=== PATIENT | female | born 1940 | race Caucasian/White ===

== ENCOUNTER 2018-11-03 12:45 | Day surgery (SDC) | payer MEDICARE, OTHER, SELFPAY ==
--- NOTE | 2018-11-03 | PATH_ITS ---
[facility] Accession Number: [id number] . 01 Material submitted: . CECAL POLYP . 02 Diagnosis: Cecum, Polyp, Biopsy: Tubular adenoma. MRV/11/05/2018 . 02 Electronically signed: . Patricia Thurston MD, Pathologist NPI- [id number] . 01 Gross description: . CECAL POLYP: Received in formalin is 1 fragment(s) of lauren, soft tissue measuring 0.7 x 0.3 x 0.2 cm submitted entirely in 1 cassette(s) /CKI /CKI . 02 Pathologist provided ICD-10: D12.0 . 02 CPT . 772793 Performed at: 01 [facility] [address] [facility] [place], [place], [place] [id number] MD Otto Morales MD Phone: [phone] Performed at: 02 [facility] [address] [place], [place] [id number] MD Patricia Thurston MD Phone: [phone]
[2018-11-03 13:56] VITALS: BP 159/86; PULSE 65; RESP 18; TEMP 37.5; O2SAT 97
[2018-11-03] MEDS: SODIUM CHLORIDE 0.9% 1,000 ML 100 ML IV (14:00)
[2018-11-03 14:07] VITALS: BMI 34.7
[2018-11-03] MEDS: MIDAZOLAM 5 MG/5 ML VIAL IV (15:41)
[2018-11-03] MEDS: fentaNYL 250 MCG/5 ML INJ IV (15:42)
--- NOTE | 2018-11-03 15:42 | PM.OP.ENDO ---
Operative Date/Time/Diagnoses Date of procedure: 11/03/18 Time of procedure: 15:42 Pre-op diagnosis: See Procedure & Clinicians Study performed: Colonoscopy Same procedure as scheduled: Yes Indications: Colon cancer screening Surgeon: Kailyn Dolan Procedure Notes Procedure in detail: After informed consent was obtained the patient was placed in left lateral decubitus position. The video colonoscope was introduced the rectum and slowly advanced. Preparation was good. Colon was fairly tortuous and rather adhesed making for some fairly sharp corners. On slow withdrawal the coast was carefully examined. The scope was removed patient tolerated procedure well Blood loss none Complications none Sedation Total sedation time 27 min Fentanyl 100 mcg Versed 5 mg IV titration Findings 1. 3 mm cecal polyp Jumbo biopsy removed completely 2. Extensive diverticulosis throughout the colon but particularly in the left colon and transverse colon. We will be getting back we sharing about her biopsy results. Given her age this is probably her last colonoscopy.
[2018-11-03 15:43] VITALS: BP 135/74; PULSE 61; RESP 12; TEMP 36.8; O2SAT 97
[2018-11-03 15:48] VITALS: BP 134/73; PULSE 59; RESP 14; O2SAT 97
[2018-11-03 15:53] VITALS: BP 136/75; PULSE 65; RESP 16; TEMP 36.8; O2SAT 99
[2018-11-03 16:15] VITALS: BP 143/76; PULSE 60; RESP 16; TEMP 36.9; O2SAT 100
--- NOTE | 2018-11-03 16:26 | SUR.PHASEII ---
stable phase 2.left when ready, left in stable condition.
== END 2018-11-03 16:20 ==
LOC: ENDO 12:46
PROVIDERS: PCP Family Medicine; Visit Provider Internal Medicine Gastroenterology
PROC: 0DJD8ZZ Inspection of Lower Intestinal Tract, Via Natural or Artificial Opening Endoscopic (ICD-10-PCS; CPT 45378; principal; 2018-11-03 14:00)
DX: Z12.11 Encounter for screening for malignant neoplasm of colon (principal); K57.30 Diverticulosis of large intestine without perforation or abscess without bleeding; D12.0 Benign neoplasm of cecum
CPT/HCPCS: 45380; 88305; J2250; J3010

== ENCOUNTER → 2019-01-10 15:39 | Outpatient (REF) | payer MEDICARE, OTHER, SELFPAY | LOC: LAB 15:39 | PROVIDERS: PCP Family Medicine; Visit Provider Family Medicine | DX: M17.0 Bilateral primary osteoarthritis of knee (principal) | CPT/HCPCS: 87081 ==

== ENCOUNTER → 2020-07-11 13:57 | Outpatient (CLI) | payer MEDICARE, OTHER, SELFPAY ==
--- NOTE | 2020-07-11 | DI.RAD.S_ITS ---
PROCEDURE: XR DEXA AXIAL SKELETON INDICATIONS: disorders of bone density and structure COMPARISON: None. FINDINGS: This blank DEXA report has been sent in error by the PACS system. The correct and complete report will be forthcoming in 1-2 days. Thank you for your patience and understanding. Dictated by: Leonarda Sutton MD, PhD on 07/11/2020 at 17:38 Approved by: Leonarda Sutton MD, PhD on 07/11/2020 at 17:44
== END ==
PROVIDERS: PCP Family Medicine; Referring Provider Family Medicine; Visit Provider Family Medicine
DX: M81.0 Age-related osteoporosis without current pathological fracture (principal); Z78.0 Asymptomatic menopausal state; Z85.3 Personal history of malignant neoplasm of breast
CPT/HCPCS: 77080

== ENCOUNTER 2021-02-16 15:37 | Emergency (ER) | payer MEDICARE, OTHER, SELFPAY ==
[2021-02-16] VITALS (50 sets, daily range): BP systolic 105–160; BP diastolic 59–103; PULSE 135–144; RESP 14–31; TEMP 36.5–37.1; O2SAT 88–96; BMI 36.3
--- NOTE | 2021-02-16 15:59 | DI.RAD.S_ITS ---
PROCEDURE: XR CHEST 1V INDICATIONS: chest pain TECHNIQUE: One view of the chest was acquired. COMPARISON: None. FINDINGS: Surgical changes and devices: None. Lungs and pleura: Lungs are abnormal with patchy bilateral alveolar edema. No pleural effusions or pneumothorax. Mediastinum: Mediastinal contours appear normal. Heart size is at the upper limits of normal. Bones and chest wall: No suspicious bony lesions. Overlying soft tissues appear unremarkable. IMPRESSION: Acute CHF appearance, no pleural effusion seen. Heart size at upper limits of normal. Dictated by: Juan Jose Marrufo M.D. on 02/16/2021 at 15:28 Approved by: Juan Jose Marrufo M.D. on 02/16/2021 at 15:29
[2021-02-16] MEDS: SODIUM CHLORIDE 0.9% 1,000 ML 150 ML IV (16:09)
[2021-02-16] MEDS: dilTIAZem 5 MG/ML SDV 10 MG IV (16:09)
--- NOTE | 2021-02-16 16:16 | ED.ARRPALP ---
HPI - Arrhythmia/Palpitations <Yesy Baum DO - Last Filed: 02/17/21 06:55> General Chief Complaint: Arrhythmia/Palpitations Stated Complaint: fast heart rate 142/bpm Time Seen by Provider: 02/16/21 15:45 Source: patient Mode of arrival: Ambulatory Limitations: no limitations History of Present Illness HPI narrative: Patient is a 80-year-old female with history of SVT presenting with elevated heart rate in the 140s. She felt ?wonky today and her took her heart rate and blood pressure and older her heart rate was in the 140s. However the last 5 days she has been checking her blood pressure and heart rate but apparently only looking at her blood pressure the went back today after she said she did not feel well and noticed that her heart rate was in the 140s since February 12. At which point they decided to come to the emergency department. Patient denies chest pain palpitations. She is having some shortness of breath with exertion but not at rest. No fever or cough. Patient is noted to be on flecainide has been is convinced it is for SVT however this does not make sense. Patient is in a wide complex regular rhythm on the monitor. She does state that she has a history of left bundle-branch block, at least those words sound familiar to her. MD complaint: rapid heart beat Related Data Home Medications Medication Instructions Recorded Confirmed potassium chloride 20 meq PO DAILY 11/03/18 11/03/18 Allergies Allergy/AdvReac Type Severity Reaction Status Date / Time No Known Drug Allergies Allergy Verified 02/16/21 15:59 Review of Systems <DO Aftab Villalta Last Filed: 02/17/21 06:55> Review of Systems ROS Unobtainable: All systems reviewed & are unremarkable except as noted in HPI and below Constitutional Constitutional: Denies chills, Denies fever(s), Denies lethargy and Denies weakness Eyes Eyes: Denies change in vision, Denies eye discharge, Denies irritation and Denies loss of vision ENT Ears, Nose, Mouth, and Throat: Denies change in voice, Denies neck pain and Denies sore throat Cardiovascular Cardiovascular: Reports rapid heart rate, Denies dyspnea and Reports dyspnea on exertion Respiratory Respiratory: Denies cough, Denies dyspnea, Reports dyspnea on exertion and Denies wheezing Gastrointestinal Gastrointestinal: Denies abdominal pain, Denies change in bowel habits, Denies diarrhea, Denies nausea and Denies vomiting Musculoskeletal Musculoskeletal: Denies joint swelling and Denies neck pain Integumentary/Breasts Skin/Breast: Denies pruritus, Denies erythema, Denies rash and Denies wounds Neurologic Neurologic: Denies loss of vision and Denies weakness Allergic/Immunologic Allergic/Immunologic: Denies wheezing Patient History <Yesy Baum DO - Last Filed: 02/17/21 06:55> Medical History Hypertension SVT (supraventricular tachycardia) Social History household members: spouse Smoking Status: Never smoker Smoking Status: Never smoker Substance Use Type: does not use Exam <Yesy Baum DO - Last Filed: 02/17/21 06:55> Initial Vital Signs Initial Vital Signs: Vital Signs Pulse Rate 144 H 02/16/21 15:46 Blood Pressure 160/103 H 02/16/21 15:46 Pulse Oximetry 96 02/16/21 15:46 GENERAL: Alert 80-year-old female in no acute distress HEENT: Head atraumatic,EOMI, pupils reactive, face symmetric, moist mucous membranes CARDIOVASCULAR: Regular tachycardic no murmurs RESPIRATORY: Breath sounds equal bilaterally, no wheezes rales or rhonchi. ABDOMEN: Soft, nontender. Normoactive bowel sounds all 4 quadrants. No guarding or rebound. EXTREMITIES: Normal range of motion, no clubbing or edema. Neurovascularly intact NEUROLOGICAL: Alert and oriented x4.Normal gait and speech. Cranial nerves II through XII grossly intact. SKIN: Warm, dry, no laceration, no petechiae, no rashes or lesions. <Kim Lewis MD - Last Filed: 02/16/21 23:22> Initial Vital Signs Initial Vital Signs: Vital Signs Pulse Rate 144 H 02/16/21 15:46 Blood Pressure 160/103 H 02/16/21 15:46 Pulse Oximetry 96 02/16/21 15:46 Course <Yesy Baum DO - Last Filed: 02/17/21 06:55> Orders Ordered: Discontinued Medications Diltiazem HCl (Diltiazem 5 Mg/Ml Sdv) 10 mg IV NOW ONE Stop: 02/16/21 16:00 Last Admin: 02/16/21 16:09 Dose: 10 mg Documented by: AMRITA Furosemide (Furosemide 40 Mg/4 Ml Vial) 20 mg IV NOW ONE Stop: 02/16/21 17:11 Last Admin: 02/16/21 17:58 Dose: 20 mg Documented by: AMRITA Heparin Sodium (Porcine) (Heparin 5,000 Unit/Ml Vial) 5,000 unit IV NOW ONE Stop: 02/16/21 17:27 Last Admin: 02/16/21 18:03 Dose: 5,000 unit Documented by: AMRTIA Sodium Chloride (Normal Saline 0.9%) 1,000 mls @ 150 mls/hr IV CONT KRISTAL Last Admin: 02/16/21 16:09 Dose: 150 mls/hr Documented by: AMRITA Amiodarone HCl/Dextrose (Nexterone) 150 mg in 100 mls @ 600 mls/hr IV NOW ONE; Protocol Stop: 02/16/21 17:33 Last Infusion: 02/16/21 19:01 Dose: 0 mls/hr Documented by: Admin: 02/16/21 18:08 Dose: 200 mls/hr Documented by: AMRITA Heparin Sodium/Dextrose (Heparin Drip) 25,000 unit in 500 mls @ 20 mls/hr IV CONT KRISTAL; Protocol Last Admin: 02/16/21 18:04 Dose: 1,000 units/hr, 20 mls/hr Documented by: AMRITA Amiodarone HCl/Dextrose (Nexterone) 360 mg in 200 mls @ 33.333 mls/hr IV NOW ONE; Protocol Stop: 02/17/21 00:41 Last Admin: 02/16/21 19:19 Dose: 33.3 mls/hr, 33.3 mls/hr Documented by: FREDI Sodium Chloride (Normal Saline 0.9%) 1,000 mls @ 150 mls/hr IV CONT KRISTAL Metoprolol Tartrate (Metoprolol Tartrate 5 Mg/5 Ml Inj) 5 mg IV NOW ONE Stop: 02/16/21 16:22 Last Admin: 02/16/21 16:24 Dose: 5 mg Documented by: AMRITA Metoprolol Tartrate (Metoprolol Tartrate 5 Mg/5 Ml Inj) 5 mg IV NOW ONE Stop: 02/16/21 16:39 Last Admin: 02/16/21 22:24 Dose: Not Given Documented by: Vital Signs Vital signs: Vital Signs - 8 hr 02/16/21 15:46 02/16/21 15:57 02/16/21 16:00 Temperature 97.7 F Pulse Rate 144 H 144 H 143 H Respiratory Rate 28 H 26 H Blood Pressure 160/103 H 160/103 H Pulse Oximetry 96 96 94 02/16/21 16:01 02/16/21 16:09 02/16/21 16:25 Temperature Pulse Rate 143 H 143 H 144 H Respiratory Rate 22 26 H Blood Pressure 147/94 H 147/94 H 131/87 Pulse Oximetry 95 92 02/16/21 16:30 02/16/21 16:35 02/16/21 16:40 Temperature Pulse Rate 144 H 141 H 141 H Respiratory Rate 16 19 14 Blood Pressure 127/88 120/82 112/79 Pulse Oximetry 91 91 95 02/16/21 16:45 02/16/21 16:50 02/16/21 16:55 Temperature Pulse Rate 141 H 140 H 140 H Respiratory Rate 24 20 19 Blood Pressure 118/77 107/78 109/79 Pulse Oximetry 94 94 94 02/16/21 17:00 02/16/21 17:05 02/16/21 17:10 Temperature Pulse Rate 140 H 140 H 140 H Respiratory Rate 15 21 16 Blood Pressure 111/73 114/76 Pulse Oximetry 94 93 95 02/16/21 17:15 02/16/21 17:20 02/16/21 17:25 Temperature Pulse Rate 140 H 140 H 141 H Respiratory Rate 17 16 18 Blood Pressure 117/79 114/78 114/81 Pulse Oximetry 95 95 95 02/16/21 17:30 02/16/21 17:35 02/16/21 17:40 Temperature Pulse Rate 141 H 141 H 142 H Respiratory Rate 18 17 24 Blood Pressure 116/84 124/88 110/81 Pulse Oximetry 95 95 95 02/16/21 18:00 02/16/21 18:30 02/16/21 19:00 Temperature Pulse Rate 141 H 137 H 140 H Respiratory Rate 18 21 23 Blood Pressure Pulse Oximetry 95 96 93 02/16/21 19:26 02/16/21 19:30 02/16/21 19:35 Temperature Pulse Rate 141 H 141 H 141 H Respiratory Rate 22 17 19 Blood Pressure 120/88 116/86 128/93 H Pulse Oximetry 93 93 93 02/16/21 19:40 02/16/21 19:45 02/16/21 19:50 Temperature Pulse Rate 142 H 141 H 143 H Respiratory Rate 21 22 19 Blood Pressure 131/93 H 128/97 H 122/93 H Pulse Oximetry 93 92 93 02/16/21 19:55 02/16/21 20:00 02/16/21 20:05 Temperature Pulse Rate 141 H 143 H 137 H Respiratory Rate 29 H 18 18 Blood Pressure 128/90 129/90 149/96 H Pulse Oximetry 93 93 94 02/16/21 20:10 02/16/21 20:15 02/16/21 20:20 Temperature Pulse Rate 137 H 136 H 135 H Respiratory Rate 16 23 25 H Blood Pressure 129/94 H 143/85 H 130/86 Pulse Oximetry 93 93 92 02/16/21 20:25 02/16/21 20:30 02/16/21 20:35 Temperature Pulse Rate 135 H 135 H 137 H Respiratory Rate 17 22 23 Blood Pressure 133/88 136/91 H 127/88 Pulse Oximetry 92 89 L 88 L 02/16/21 20:40 02/16/21 20:45 02/16/21 20:50 Temperature Pulse Rate 137 H 136 H 136 H Respiratory Rate 17 19 20 Blood Pressure 128/89 129/89 129/92 H Pulse Oximetry 94 93 93 02/16/21 21:00 02/16/21 21:15 02/16/21 21:30 Temperature Pulse Rate 135 H 135 H 138 H Respiratory Rate 20 29 H 22 Blood Pressure 135/92 H 140/91 H 112/65 Pulse Oximetry 94 93 93 02/16/21 21:45 02/16/21 22:00 02/16/21 22:15 Temperature Pulse Rate 138 H 138 H 140 H Respiratory Rate 22 19 21 Blood Pressure 105/59 L 119/68 130/87 Pulse Oximetry 91 94 91 <Kim Lewis MD - Last Filed: 02/16/21 23:22> Orders Ordered: Discontinued Medications Diltiazem HCl (Diltiazem 5 Mg/Ml Sdv) 10 mg IV NOW ONE Stop: 02/16/21 16:00 Last Admin: 02/16/21 16:09 Dose: 10 mg Documented by: AMRITA Furosemide (Furosemide 40 Mg/4 Ml Vial) 20 mg IV NOW ONE Stop: 02/16/21 17:11 Last Admin: 02/16/21 17:58 Dose: 20 mg Documented by: AMRITA Heparin Sodium (Porcine) (Heparin 5,000 Unit/Ml Vial) 5,000 unit IV NOW ONE Stop: 02/16/21 17:27 Last Admin: 02/16/21 18:03 Dose: 5,000 unit Documented by: AMRITA Sodium Chloride (Normal Saline 0.9%) 1,000 mls @ 150 mls/hr IV CONT KRISTAL Last Admin: 02/16/21 16:09 Dose: 150 mls/hr Documented by: AMRITA Amiodarone HCl/Dextrose (Nexterone) 150 mg in 100 mls @ 600 mls/hr IV NOW ONE; Protocol Stop: 02/16/21 17:33 Last Infusion: 02/16/21 19:01 Dose: 0 mls/hr Documented by: Admin: 02/16/21 18:08 Dose: 200 mls/hr Documented by: AMRITA Heparin Sodium/Dextrose (Heparin Drip) 25,000 unit in 500 mls @ 20 mls/hr IV CONT KRISTAL; Protocol Last Admin: 02/16/21 18:04 Dose: 1,000 units/hr, 20 mls/hr Documented by: AMRITA Amiodarone HCl/Dextrose (Nexterone) 360 mg in 200 mls @ 33.333 mls/hr IV NOW ONE; Protocol Stop: 02/17/21 00:41 Last Admin: 02/16/21 19:19 Dose: 33.3 mls/hr, 33.3 mls/hr Documented by: FREDI Sodium Chloride (Normal Saline 0.9%) 1,000 mls @ 150 mls/hr IV CONT KRISTAL Metoprolol Tartrate (Metoprolol Tartrate 5 Mg/5 Ml Inj) 5 mg IV NOW ONE Stop: 02/16/21 16:22 Last Admin: 02/16/21 16:24 Dose: 5 mg Documented by: AMRITA Metoprolol Tartrate (Metoprolol Tartrate 5 Mg/5 Ml Inj) 5 mg IV NOW ONE Stop: 02/16/21 16:39 Last Admin: 02/16/21 22:24 Dose: Not Given Documented by: Vital Signs Vital signs: Vital Signs - 8 hr 02/16/21 15:46 02/16/21 15:57 02/16/21 16:00 Temperature 97.7 F Pulse Rate 144 H 144 H 143 H Respiratory Rate 28 H 26 H Blood Pressure 160/103 H 160/103 H Pulse Oximetry 96 96 94 02/16/21 16:01 02/16/21 16:09 02/16/21 16:25 Temperature Pulse Rate 143 H 143 H 144 H Respiratory Rate 22 26 H Blood Pressure 147/94 H 147/94 H 131/87 Pulse Oximetry 95 92 02/16/21 16:30 02/16/21 16:35 02/16/21 16:40 Temperature Pulse Rate 144 H 141 H 141 H Respiratory Rate 16 19 14 Blood Pressure 127/88 120/82 112/79 Pulse Oximetry 91 91 95 02/16/21 16:45 02/16/21 16:50 02/16/21 16:55 Temperature Pulse Rate 141 H 140 H 140 H Respiratory Rate 24 20 19 Blood Pressure 118/77 107/78 109/79 Pulse Oximetry 94 94 94 02/16/21 17:00 02/16/21 17:05 02/16/21 17:10 Temperature Pulse Rate 140 H 140 H 140 H Respiratory Rate 15 21 16 Blood Pressure 111/73 114/76 Pulse Oximetry 94 93 95 02/16/21 17:15 02/16/21 17:20 02/16/21 17:25 Temperature Pulse Rate 140 H 140 H 141 H Respiratory Rate 17 16 18 Blood Pressure 117/79 114/78 114/81 Pulse Oximetry 95 95 95 02/16/21 17:30 02/16/21 17:35 02/16/21 17:40 Temperature Pulse Rate 141 H 141 H 142 H Respiratory Rate 18 17 24 Blood Pressure 116/84 124/88 110/81 Pulse Oximetry 95 95 95 02/16/21 18:00 02/16/21 18:30 02/16/21 19:00 Temperature Pulse Rate 141 H 137 H 140 H Respiratory Rate 18 21 23 Blood Pressure Pulse Oximetry 95 96 93 02/16/21 19:26 02/16/21 19:30 02/16/21 19:35 Temperature Pulse Rate 141 H 141 H 141 H Respiratory Rate 22 17 19 Blood Pressure 120/88 116/86 128/93 H Pulse Oximetry 93 93 93 02/16/21 19:40 02/16/21 19:45 02/16/21 19:50 Temperature Pulse Rate 142 H 141 H 143 H Respiratory Rate 21 22 19 Blood Pressure 131/93 H 128/97 H 122/93 H Pulse Oximetry 93 92 93 02/16/21 19:55 02/16/21 20:00 02/16/21 20:05 Temperature Pulse Rate 141 H 143 H 137 H Respiratory Rate 29 H 18 18 Blood Pressure 128/90 129/90 149/96 H Pulse Oximetry 93 93 94 02/16/21 20:10 02/16/21 20:15 02/16/21 20:20 Temperature Pulse Rate 137 H 136 H 135 H Respiratory Rate 16 23 25 H Blood Pressure 129/94 H 143/85 H 130/86 Pulse Oximetry 93 93 92 02/16/21 20:25 02/16/21 20:30 02/16/21 20:35 Temperature Pulse Rate 135 H 135 H 137 H Respiratory Rate 17 22 23 Blood Pressure 133/88 136/91 H 127/88 Pulse Oximetry 92 89 L 88 L 02/16/21 20:40 02/16/21 20:45 02/16/21 20:50 Temperature Pulse Rate 137 H 136 H 136 H Respiratory Rate 17 19 20 Blood Pressure 128/89 129/89 129/92 H Pulse Oximetry 94 93 93 02/16/21 21:00 02/16/21 21:15 02/16/21 21:30 Temperature Pulse Rate 135 H 135 H 138 H Respiratory Rate 20 29 H 22 Blood Pressure 135/92 H 140/91 H 112/65 Pulse Oximetry 94 93 93 02/16/21 21:45 02/16/21 22:00 02/16/21 22:15 Temperature Pulse Rate 138 H 138 H 140 H Respiratory Rate 22 19 21 Blood Pressure 105/59 L 119/68 130/87 Pulse Oximetry 91 94 91 MDM - Arrhythmia/Palpitations <Yesy Baum, - Last Filed: 02/17/21 06:55> Lab Data Attestation: I reviewed the patient's lab results. Result diagrams: 02/16/21 15:55 02/16/21 15:55 Labs: Lab Results 02/16/21 02/16/2121 Range/Units 15:55 15:55 16:00 WBC 11.3 H (4.5-11.0) X10^3/uL RBC 4.23 (4.0-5.2) X10^6/uL Hgb 12.5 (12.0-16.0) g/dL Hct 38.8 (36-46) % MCV 91.7 (80-100) fL MCH 29.6 (26-34) PG MCHC 32.3 (30-36) % RDW 14.0 (11.6-14.8) % Plt Count 414 H (150-400) X10^3/uL Neut % (Auto) 80.5 H (50-75) % Lymph % (Auto) 11.6 L (25-40) % Howell % (Auto) 6.4 (3-14) % Eos % (Auto) 1.0 L (2-4) % Baso % (Auto) 0.5 (0-2) % Neut # (Auto) 9100 H (4919-8641) /uL Lymph # (Auto) 1300 (8157-6174) /uL Howell # (Auto) 700 (0-900) /uL Eos # (Auto) 100 (0-450) /uL Baso # (Auto) 100 (0-100) /uL PT (10.1-12.7) SECONDS INR (0.9-1.3) APTT (26.4-36.2) SECONDS D-Dimer (<230) ng/mL Sodium 134 L (137-145) mmol/L Potassium 4.3 (3.4-5.1) mmol/L Chloride 105 (98-107) mmol/L Carbon Dioxide 21 L (22-32) mmol/L BUN 19 H (7-17) mg/dL Creatinine 0.60 (0.52-1.04) mg/dL Estimated GFR > 60.0 (>60) mL/min BUN/Creatinine Ratio 31.7 H (6-22) Glucose 120 H (80-110) mg/dL Calcium 9.6 (8.4-10.2) mg/dL Total Bilirubin 0.2 (0.2-1.3) mg/dL AST 39 H (14-36) IU/L ALT 33 (<35) IU/L Alkaline Phosphatase 91 (38-126) U/L Total Creatine Kinase 90 (30-135) U/L CK-MB (CK-2) TNP CK-MB (CK-2) Rel Index TNP Troponin I 0.035 H (0.01-0.034) ng/mL NT-Pro-B Natriuret Pep 3680 H (<450) pg/mL Total Protein 7.5 (6.3-8.2) g/dL Albumin 4.1 (3.5-5.0) g/dL Globulin 3.4 (1.7-4.1) g/dL Albumin/Globulin Ratio 1.2 (1.0-2.8) Lipase 48 (23-300) U/L SARS-CoV-2 (PCR) Negative (Negative) 02/16/21 02/16/21 02/16/21 Range/Units 17:08 17:08 17:08 WBC (4.5-11.0) X10^3/uL RBC (4.0-5.2) X10^6/uL Hgb (12.0-16.0) g/dL Hct (36-46) % MCV (80-100) fL MCH (26-34) PG MCHC (30-36) % RDW (11.6-14.8) % Plt Count (150-400) X10^3/uL Neut % (Auto) (50-75) % Lymph % (Auto) (25-40) % Howell % (Auto) (3-14) % Eos % (Auto) (2-4) % Baso % (Auto) (0-2) % Neut # (Auto) (1090-4157) /uL Lymph # (Auto) (3470-9363) /uL Howell # (Auto) (0-900) /uL Eos # (Auto) (0-450) /uL Baso # (Auto) (0-100) /uL PT 12.3 (10.1-12.7) SECONDS INR 1.1 (0.9-1.3) APTT 33 (26.4-36.2) SECONDS D-Dimer < 200 (<230) ng/mL Sodium (137-145) mmol/L Potassium (3.4-5.1) mmol/L Chloride (98-107) mmol/L Carbon Dioxide (22-32) mmol/L BUN (7-17) mg/dL Creatinine (0.52-1.04) mg/dL Estimated GFR (>60) mL/min BUN/Creatinine Ratio (6-22) Glucose (80-110) mg/dL Calcium (8.4-10.2) mg/dL Total Bilirubin (0.2-1.3) mg/dL AST (14-36) IU/L ALT (<35) IU/L Alkaline Phosphatase (38-126) U/L Total Creatine Kinase (30-135) U/L CK-MB (CK-2) CK-MB (CK-2) Rel Index Troponin I (0.01-0.034) ng/mL NT-Pro-B Natriuret Pep (<450) pg/mL Total Protein (6.3-8.2) g/dL Albumin (3.5-5.0) g/dL Globulin (1.7-4.1) g/dL Albumin/Globulin Ratio (1.0-2.8) Lipase (23-300) U/L SARS-CoV-2 (PCR) (Negative) 02/16/21 Range/Units 18:10 WBC (4.5-11.0) X10^3/uL RBC (4.0-5.2) X10^6/uL Hgb (12.0-16.0) g/dL Hct (36-46) % MCV (80-100) fL MCH (26-34) PG MCHC (30-36) % RDW (11.6-14.8) % Plt Count (150-400) X10^3/uL Neut % (Auto) (50-75) % Lymph % (Auto) (25-40) % Howell % (Auto) (3-14) % Eos % (Auto) (2-4) % Baso % (Auto) (0-2) % Neut # (Auto) (5066-4561) /uL Lymph # (Auto) (1704-2763) /uL Howell # (Auto) (0-900) /uL Eos # (Auto) (0-450) /uL Baso # (Auto) (0-100) /uL PT (10.1-12.7) SECONDS INR (0.9-1.3) APTT (26.4-36.2) SECONDS D-Dimer (<230) ng/mL Sodium (137-145) mmol/L Potassium (3.4-5.1) mmol/L Chloride (98-107) mmol/L Carbon Dioxide (22-32) mmol/L BUN (7-17) mg/dL Creatinine (0.52-1.04) mg/dL Estimated GFR (>60) mL/min BUN/Creatinine Ratio (6-22) Glucose (80-110) mg/dL Calcium (8.4-10.2) mg/dL Total Bilirubin (0.2-1.3) mg/dL AST (14-36) IU/L ALT (<35) IU/L Alkaline Phosphatase (38-126) U/L Total Creatine Kinase (30-135) U/L CK-MB (CK-2) CK-MB (CK-2) Rel Index Troponin I 0.031 (0.01-0.034) ng/mL NT-Pro-B Natriuret Pep (<450) pg/mL Total Protein (6.3-8.2) g/dL Albumin (3.5-5.0) g/dL Globulin (1.7-4.1) g/dL Albumin/Globulin Ratio (1.0-2.8) Lipase (23-300) U/L SARS-CoV-2 (PCR) (Negative) Imaging Data Chest x-ray: Radiologist's Impresson: PROCEDURE: XR CHEST 1V INDICATIONS: chest pain TECHNIQUE: One view of the chest was acquired. COMPARISON: None. FINDINGS: Surgical changes and devices: None. Lungs and pleura: Lungs are abnormal with patchy bilateral alveolar edema. No pleural effusions or pneumothorax. Mediastinum: Mediastinal contours appear normal. Heart size is at the upper limits of normal. Bones and chest wall: No suspicious bony lesions. Overlying soft tissues appear unremarkable. IMPRESSION: Acute CHF appearance, no pleural effusion seen. Heart size at upper limits of normal. Dictated by: Juan Jose Marrufo M.D. on 02/16/2021 at 15:28 ECG Data Attestation: I personally reviewed and interpreted this ECG as follows: Prior ECG tracings: available for review Interpretation: Atrial flutter 1-[address] changes slightly wide complex has no V-tach left bundle branch block Rate 141 no change from prior MDM Narrative Medical decision making narrative: Patient is asymptomatic with what seems to be atrial flutter. She is given a dose of diltiazem 10 mg which did not help, she is given 1 dose of Lopressor 5 mg which also did not seem to have much of a response her blood pressure did decrease into the low 100s. She is not a great candidate for cardioversion because symptoms have been on going for at least 4 days and she is not on anticoagulation. 1720-I spoke with Cardiology , who agreed with amiodarone drip and heparin drip. Patient was given 150 mg bolus over 30 minutes which did slower heart rate to of low as 135, however well waiting for the continuation of the amiodarone drip there was a delay in her heart rate increased back up to 141. Patient's BNP is elevated at 3600 consistent with congestive heart failure likely explaining her symptoms of shortness of breath. Her D-dimer is negative unlikely to be PE. Her troponins are also mildly elevated but seem to be decreasing both elevated BNP and troponins are likely rate related to her tachycardia. 1920-Dr. Chavez updated patient's symptoms and test results and request patient be transferred to facility were cardiology can evaluate her Unfortunately [facility], [facility], [place], [facility] are all at capacity Patient signed out to Dr. Lewis for further medical management <Kim Lewis MD - Last Filed: 02/16/21 23:22> Medical Records Attestation: I reviewed the patient's medical records. Lab Data Attestation: I reviewed the patient's lab results. Labs: Lab Results 02/16/21 02/16/21 02/16/21 Range/Units 15:55 15:55 16:00 WBC 11.3 H (4.5-11.0) X10^3/uL RBC 4.23 (4.0-5.2) X10^6/uL Hgb 12.5 (12.0-16.0) g/dL Hct 38.8 (36-46) % MCV 91.7 (80-100) fL MCH 29.6 (26-34) PG MCHC 32.3 (30-36) % RDW 14.0 (11.6-14.8) % Plt Count 414 H (150-400) X10^3/uL Neut % (Auto) 80.5 H (50-75) % Lymph % (Auto) 11.6 L (25-40) % Howell % (Auto) 6.4 (3-14) % Eos % (Auto) 1.0 L (2-4) % Baso % (Auto) 0.5 (0-2) % Neut # (Auto) 9100 H (8080-2759) /uL Lymph # (Auto) 1300 (7250-7399) /uL Howell # (Auto) 700 (0-900) /uL Eos # (Auto) 100 (0-450) /uL Baso # (Auto) 100 (0-100) /uL PT (10.1-12.7) SECONDS INR (0.9-1.3) APTT (26.4-36.2) SECONDS D-Dimer (<230) ng/mL Sodium 134 L (137-145) mmol/L Potassium 4.3 (3.4-5.1) mmol/L Chloride 105 (98-107) mmol/L Carbon Dioxide 21 L (22-32) mmol/L BUN 19 H (7-17) mg/dL Creatinine 0.60 (0.52-1.04) mg/dL Estimated GFR > 60.0 (>60) mL/min BUN/Creatinine Ratio 31.7 H (6-22) Glucose 120 H (80-110) mg/dL Calcium 9.6 (8.4-10.2) mg/dL Total Bilirubin 0.2 (0.2-1.3) mg/dL AST 39 H (14-36) IU/L ALT 33 (<35) IU/L Alkaline Phosphatase 91 (38-126) U/L Total Creatine Kinase 90 (30-135) U/L CK-MB (CK-2) TNP CK-MB (CK-2) Rel Index TNP Troponin I 0.035 H (0.01-0.034) ng/mL NT-Pro-B Natriuret Pep 3680 H (<450) pg/mL Total Protein 7.5 (6.3-8.2) g/dL Albumin 4.1 (3.5-5.0) g/dL Globulin 3.4 (1.7-4.1) g/dL Albumin/Globulin Ratio 1.2 (1.0-2.8) Lipase 48 (23-300) U/L SARS-CoV-2 (PCR) Negative (Negative) 02/16/21 02/16/21 02/16/21 Range/Units 17:08 17:08 17:08 WBC (4.5-11.0) X10^3/uL RBC (4.0-5.2) X10^6/uL Hgb (12.0-16.0) g/dL Hct (36-46) % MCV (80-100) fL MCH (26-34) PG MCHC (30-36) % RDW (11.6-14.8) % Plt Count (150-400) X10^3/uL Neut % (Auto) (50-75) % Lymph % (Auto) (25-40) % Howell % (Auto) (3-14) % Eos % (Auto) (2-4) % Baso % (Auto) (0-2) % Neut # (Auto) (0566-3778) /uL Lymph # (Auto) (5563-2910) /uL Howell # (Auto) (0-900) /uL Eos # (Auto) (0-450) /uL Baso # (Auto) (0-100) /uL PT 12.3 (10.1-12.7) SECONDS INR 1.1 (0.9-1.3) APTT 33 (26.4-36.2) SECONDS D-Dimer < 200 (<230) ng/mL Sodium (137-145) mmol/L Potassium (3.4-5.1) mmol/L Chloride (98-107) mmol/L Carbon Dioxide (22-32) mmol/L BUN (7-17) mg/dL Creatinine (0.52-1.04) mg/dL Estimated GFR (>60) mL/min BUN/Creatinine Ratio (6-22) Glucose (80-110) mg/dL Calcium (8.4-10.2) mg/dL Total Bilirubin (0.2-1.3) mg/dL AST (14-36) IU/L ALT (<35) IU/L Alkaline Phosphatase (38-126) U/L Total Creatine Kinase (30-135) U/L CK-MB (CK-2) CK-MB (CK-2) Rel Index Troponin I (0.01-0.034) ng/mL NT-Pro-B Natriuret Pep (<450) pg/mL Total Protein (6.3-8.2) g/dL Albumin (3.5-5.0) g/dL Globulin (1.7-4.1) g/dL Albumin/Globulin Ratio (1.0-2.8) Lipase (23-300) U/L SARS-CoV-2 (PCR) (Negative) 02/16/21 Range/Units 18:10 WBC (4.5-11.0) X10^3/uL RBC (4.0-5.2) X10^6/uL Hgb (12.0-16.0) g/dL Hct (36-46) % MCV (80-100) fL MCH (26-34) PG MCHC (30-36) % RDW (11.6-14.8) % Plt Count (150-400) X10^3/uL Neut % (Auto) (50-75) % Lymph % (Auto) (25-40) % Howell % (Auto) (3-14) % Eos % (Auto) (2-4) % Baso % (Auto) (0-2) % Neut # (Auto) (0725-4166) /uL Lymph # (Auto) (2086-9604) /uL Howell # (Auto) (0-900) /uL Eos # (Auto) (0-450) /uL Baso # (Auto) (0-100) /uL PT (10.1-12.7) SECONDS INR (0.9-1.3) APTT (26.4-36.2) SECONDS D-Dimer (<230) ng/mL Sodium (137-145) mmol/L Potassium (3.4-5.1) mmol/L Chloride (98-107) mmol/L Carbon Dioxide (22-32) mmol/L BUN (7-17) mg/dL Creatinine (0.52-1.04) mg/dL Estimated GFR (>60) mL/min BUN/Creatinine Ratio (6-22) Glucose (80-110) mg/dL Calcium (8.4-10.2) mg/dL Total Bilirubin (0.2-1.3) mg/dL AST (14-36) IU/L ALT (<35) IU/L Alkaline Phosphatase (38-126) U/L Total Creatine Kinase (30-135) U/L CK-MB (CK-2) CK-MB (CK-2) Rel Index Troponin I 0.031 (0.01-0.034) ng/mL NT-Pro-B Natriuret Pep (<450) pg/mL Total Protein (6.3-8.2) g/dL Albumin (3.5-5.0) g/dL Globulin (1.7-4.1) g/dL Albumin/Globulin Ratio (1.0-2.8) Lipase (23-300) U/L SARS-CoV-2 (PCR) (Negative) MDM Narrative Medical decision making narrative: Care is assumed from Dr. Baum. 80-year-old lady in atrial flutter at a rate of 140 for the past 4 days despite being on oral flecainide. Asymptomatic with this. She has been loaded with amiodarone and heart rate has come down from 140 to 135. Initial troponin was borderline at 0.035 and repeat was actually lower. There is no evidence of acute ischemic changes. She is in mild heart failure presumably from the at least 4 days of rapid ventricular response to her atrial flutter. She is not currently anticoagulated. She started on a heparin drip and continues with an amiodarone drip. Care is reviewed with hospital provider here who suggested that she would be better served at a hospital with immediate cardiac consultation available. With limited bed availability transfer was eventually facilitated with Belen salazar. 11pm transport is available, patient is stable with heart rate at 140, amiodarone and heparin drips continue. Critical Care Time <Yesy Baum, DO - Last Filed: 02/17/21 06:55> Critical Care Time Critical Care Time: Yes Total Critical Care Time: 45 Attestation: The high probability of a clinically significant, sudden or life threatening deterioration of the [cardiovascular] system(s) required my full and direct attention, intervention and personal management. The aggregate critical care time was [45] minutes. This time is in addition to time spent performing reported procedures but includes the following: [x] Data Review and interpretation [x] Patient assessment and monitoring of vital signs [x] Documentation [x] Medication orders and management Discharge Plan Departure Patient Disposition: [facility] Clinical Impression: Atrial flutter with rapid ventricular response, Congestive heart failure Prescriptions: No Action potassium chloride 20 mEq Tablet Extended Release 20 meq PO DAILY RF: 0 Referrals: Narcisa Ibanez MD [Primary Care Provider] -
[2021-02-16] MEDS: METOPROLOL TARTRATE 5 MG/5 ML INJ IV (16:24)
[2021-02-16 16:31] LABS: Add Manual Diff / Slide Review NO; Basophils Absolute Auto 100 /uL (0-100); Basophils Percent Auto 0.5 % (0-2); Eosinophils Absolute Auto 100 /uL (0-450); Hematocrit 38.8 % (36-46); Hemoglobin 12.5 g/dL (12.0-16.0); Lymphocytes Absolute Auto 1300 /uL (1100-4500); Lymphocytes Percent Auto 11.6 % (25-40); Mean Corpuscular HGB Conc 32.3 % (30-36); Mean Corpuscular Hemoglobin 29.6 PG (26-34); Mean Corpuscular Volume 91.7 fL (80-100); Monocytes Absolute Auto 700 /uL (0-900); Monocytes Percent Auto 6.4 % (3-14); Neutrophils Absolute Auto 9100 /uL (1500-7000); Neutrophils Percent Auto 80.5 % (50-75); Platelet Count 414 X10^3/uL (150-400); Red Blood Cell Count 4.23 X10^6/uL (4.0-5.2); White Blood Cell Count 11.3 X10^3/uL (4.5-11.0)
--- NOTE | 2021-02-16 16:44 | PC.NURSE ---
iv placed by Jae GUZMAN
[2021-02-16 16:45] LABS: Alanine Aminotransferase 33 IU/L (<35); Albumin 4.1 g/dL (3.5-5.0); Albumin Globulin Ratio 1.2 (1.0-2.8); Alkaline Phosphatase 91 U/L (38-126); Aspartate Aminotransferase 39 IU/L (14-36); BUN Creatinine Ratio 31.7 (6-22); Bilirubin Total 0.2 mg/dL (0.2-1.3); Blood Urea Nitrogen 19 mg/dL (7-17); Calcium 9.6 mg/dL (8.4-10.2); Carbon Dioxide 21 mmol/L (22-32); Chloride 105 mmol/L (98-107); Creatine Kinase 90 U/L (30-135); Estimated Glomerular Filt Rate > 60.0 mL/min (>60); Globulin 3.4 g/dL (1.7-4.1); Glucose 120 mg/dL (80-110); HEMOLYSIS < 15 (0-50); Lipase 48 U/L (23-300); Potassium 4.3 mmol/L (3.4-5.1); Sodium 134 mmol/L (137-145); Total Protein 7.5 g/dL (6.3-8.2)
[2021-02-16 16:56] LABS: NT-proBNP (BNP-Adult 18+) 3680 pg/mL (<450); Troponin I 0.035 ng/mL (0.01-0.034)
--- NOTE | 2021-02-16 16:56 | PC.NURSE ---
Patient sats in the upper 80s. Placed on 2L NC. spo2 in the low 90s now, provider aware
[2021-02-16 17:31] LABS: D Dimer < 200 ng/mL (<230)
[2021-02-16 17:38] LABS: PTT Partial Thromboplastin Tim 33 SECONDS (26.4-36.2)
[2021-02-16 17:48] LABS: INR 1.1 (0.9-1.3); Prothrombin Time 12.3 SECONDS (10.1-12.7)
[2021-02-16] MEDS: FUROSEMIDE 40 MG/4 ML VIAL 20 MG IV (17:58)
[2021-02-16] MEDS: HEPARIN 5,000 UNIT/ML VIAL 5000 UNIT IV (18:03)
[2021-02-16] MEDS: HEPARIN DRIP 25,000 UNIT/500 ML IV.SOLN 20 UNIT IV (18:04)
[2021-02-16] MEDS: AMIODARONE 150 MG/100 ML PIGGYBACK 200 MG IV (18:08)
--- NOTE | 2021-02-16 18:09 | PC.NURSE ---
provider gave verbal order to run amidorone at 200/hr or infuse over 30 minutes.
[2021-02-16 18:38] LABS: COVID19 -Nasal RAPID Negative (Negative)
[2021-02-16 18:51] LABS: Troponin I 0.031 ng/mL (0.01-0.034)
[2021-02-16] MEDS: AMIODARONE 360 MG/200 ML PIGGYBACK 33.3 MG IV (19:19)
--- NOTE | 2021-02-16 20:55 | PC.NURSE ---
patient desatted to high 80s when resting; placed on 2 L NC to improve O2 sats >90%
--- NOTE | 2021-02-26 19:47 | PC.NURSE ---
Late entry: Patient was transferred to outside hospital and was transported on Amiodarone and Heparin drips. Drips were not stopped during transport due to patient's condition.
== END 2021-02-16 22:55 | disposition short-term general hospital (02) ==
PROVIDERS: Emergency Medicine; Emergency Provider Emergency Medicine; PCP Family Medicine
DX: I48.92 Unspecified atrial flutter (principal); I50.9 Heart failure, unspecified; R07.9 Chest pain, unspecified; R06.00 Dyspnea, unspecified; Z20.822 Contact with and (suspected) exposure to COVID-19
CPT/HCPCS: 36415; 71045; 80053; 82550; 83690; 83880; 84484; 85025; 85379; 85610; 85730; 87635; 93005; 96365; 96366; 96367; 96375; 99285; 99291; 99292; C9803; J0282; J1644; J1940

== ENCOUNTER → 2023-01-15 09:42 | Outpatient (CLI) | payer MEDICARE, OTHER, SELFPAY ==
--- NOTE | 2023-01-15 09:59 | DI.DEXA.S_ITS ---
Bone Density Report Name: HEAVEN VARGAS Age: 82 Sex: Female Ethnicity: White Date of : 1940 Indication: osteopenia; Referring Provider: ANDREI COHEN Study: Bone densitometry was performed. Exam Date: January 15, 2023 Accession number: [id number] Bone Density: Region BMD T-score Z-score Classification AP Spine(L1, L2, L3) 0.960 -0.5 2.1 Normal Femoral Neck (Left) 0.645 -1.8 0.5 Osteopenia Total Hip (Left) 0.773 -1.4 0.7 Osteopenia Femoral Neck (Right) 0.589 -2.3 0.0 Osteopenia Total Hip (Right) 0.779 -1.3 0.8 Osteopenia Total Hip Mean 0.776 -1.4 0.8 Osteopenia World Health Organization criteria for BMD impression classify patients as: Normal (T-score at or above -1.0), Osteopenia (T-score between -1.0 and -2.5), or Osteoporosis (T-score at or below -2.5). 10-year Fracture Risk(1): Major Osteoporotic Fracture 15% Hip Fracture 4.8% Reported Risk Factors: [place] (), Neck BMD=0.589, BMI=36.6 (1) FRAX(R) Version 3.08. Fracture probability calculated for an untreated patient. Fracture probability may be lower if the patient has received treatment. Previous Exams: -- Region Exam Age BMD T-score BMD Change BMD Change Date g/cm2 vs Baseline vs Previous -- AP Spine (L1-L3) 01/15/2023 82 0.960 -0.5 0.009 (1.0%)# 0.009 (1.0%)# 07/11/2020 80 0.951 -0.6 Total Hip(Left) 01/15/2023 82 0.773 -1.4 0.003 (0.4%)# 0.003 (0.4%)# 07/11/2020 80 0.770 -1.4 Total Hip(Right) 01/15/2023 82 0.779 -1.3 -0.035 (-4.3%)# -0.035 (-4.3%)# 07/11/2020 80 0.814 -1.1 -- *Denotes significance at 95% confidence level, LSC for AP Spine = 0.022 g/cm2, LSC for Total Hip = 0.027 g/cm2 # Denotes dissimilar scan types or analysis methods Impression: The patient has low bone mass, based on the Right Femoral Neck T-score. The patient has an estimated ten-year risk of hip fracture of 4.8% and an estimated ten-year risk of major fracture of 15%, based on the WHO FRAX algorithm. No significant bone loss was observed. Discussion: BONE DENSITY IS LOW AT ONE OR MORE SKELETAL SITES. THE PATIENT'S BMD AND CLINICAL RISK FACTORS CONTRIBUTE TO THIS PATIENT'S INCREASED RISK OF FRACTURE. This patient's lowest T-score is low at one or more skeletal sites. It meets the World Health Organization's (WHO) criteria for ?low bone mass? (T-score between -1.0 and -2.5). The patient's 10-year risk of hip fracture as calculated by FRAX exceeds the threshold where pharmacological therapy is recommended by the National Osteoporosis Foundation (NOF). However, all treatment decisions require clinical judgment and consideration of individual patient factors, including patient preferences, comorbidities, previous drug use, risk factors not captured in the FRAX model (e.g., frailty, falls, vitamin D deficiency, increased bone turnover, interval significant decline in bone density) and possible under or overestimation of fracture risk by FRAX. The patient should follow a healthful lifestyle (good nutrition with adequate calcium and vitamin D, and appropriate weight-bearing exercise). Follow-Up: Consider a repeat BMD and Vertebral Fracture Assessment (VFA) exam in 2 years or sooner if medically necessary, to reassess this patient's status. Reported by: SHINE DAVISON M.D. on 01/15/2023 10:13:00 AM.
[2023-01-15 11:21] LABS: Add Manual Diff / Slide Review NO; Basophils Absolute Auto 100 /uL (0-100); Eosinophils Absolute Auto 200 /uL (0-450); Eosinophils Percent Auto 4.7 % (2-4); Hematocrit 38.7 % (36-46); Hemoglobin 13.2 g/dL (12.0-16.0); Lymphocytes Absolute Auto 1100 /uL (1100-4500); Lymphocytes Percent Auto 21.9 % (25-40); Mean Corpuscular HGB Conc 34.1 % (30-36); Mean Corpuscular Hemoglobin 30.7 PG (26-34); Monocytes Absolute Auto 500 /uL (0-900); Monocytes Percent Auto 10.3 % (3-14); Neutrophils Absolute Auto 3100 /uL (1500-7000); Neutrophils Percent Auto 62.1 % (50-75); Platelet Count 296 X10^3/uL (150-400); Red Cell Distribution Width 13.8 % (11.6-14.8)
[2023-01-15 12:02] LABS: Alanine Aminotransferase 21 IU/L (<35); Albumin 4.1 g/dL (3.5-5.0); Albumin Globulin Ratio 1.2 (1.0-2.8); Alkaline Phosphatase 78 U/L (38-126); Aspartate Aminotransferase 24 IU/L (14-36); Bilirubin Total 0.6 mg/dL (0.2-1.3); Blood Urea Nitrogen 14 mg/dL (7-17); Calcium 9.4 mg/dL (8.4-10.2); Carbon Dioxide 29 mmol/L (22-32); Chloride 104 mmol/L (98-107); Cholesterol 236 mg/dL (140-199); Estimated Glomerular Filt Rate > 60 mL/min (>60); Globulin 3.5 g/dL (1.7-4.1); Glucose 98 mg/dL (80-110); HDL Cholesterol 52 mg/dL (40-60); HEMOLYSIS < 15 (0-50); LDL Cholesterol Calculated 161 mg/dL (<100); Potassium 4.4 mmol/L (3.4-5.1); Sodium 139 mmol/L (137-145); Total Protein 7.6 g/dL (6.3-8.2); Triglycerides 113 mg/dL (35-150)
[2023-01-15 12:13] LABS: Vitamin D 25 Hydroxy (D3) 52.4 ng/mL (30.0-100.0)
[2023-01-15 12:31] LABS: Thyroid Stimulating Hormone 1.14 uIU/mL (0.47-4.68)
== END ==
PROVIDERS: PCP Family Medicine; Referring Provider Family Medicine; Visit Provider Family Medicine
DX: M85.851 Other specified disorders of bone density and structure, right thigh; Z78.0 Asymptomatic menopausal state; E78.5 Hyperlipidemia, unspecified; I48.91 Unspecified atrial fibrillation; I10 Essential (primary) hypertension; Z79.899 Other long term (current) drug therapy
CPT/HCPCS: 77080; 80053; 80061; 82306; 84443; 85025